=== PATIENT | male | born 1990 | race African-American/Black ===

== ENCOUNTER 2023-12-01 08:35 | Emergency (ER) | payer OTHER ==
[2023-12-01] MEDS ORDERED: Azithromycin 250 MG TAB ONE (09:46)
[2023-12-01] MEDS ORDERED: Lidocaine 1% PF 5 ML VIAL ONE (09:46)
[2023-12-01] MEDS ORDERED: cefTRIAXone (ROCEPHIN) 500 MG VIAL ONE (09:46)
[2023-12-01 20:14] LABS: Chlam.trachomatis by PCR,Urine Not Detected (NotDetected); GC N.gonorrhoeae PCR,UrineVOID Not Detected (NotDetected)
== END 2023-12-01 10:10 | disposition home or self-care (01) ==
LOC: CSHERS 08:35
DX: A64 Unspecified sexually transmitted disease (principal); F17.210 Nicotine dependence, cigarettes, uncomplicated
CPT/HCPCS: 87491; 87591; 96372; 99283; J0696